=== PATIENT | female | born 1985 | race Caucasian/White ===

== ENCOUNTER 2016-04-10 17:32 | Emergency (ER) | payer OTHER ==
[2016-04-10] MEDS ORDERED: ONDANSETRON 4MG/2ML VIAL (J2405) As Ordered ONE (18:30)
[2016-04-10] MEDS ORDERED: KETOROLAC 30 MG/ML VIAL (J1885) As Ordered ONE (18:30)
[2016-04-10 19:04] LABS: BASO # 0.2 K/mm3 (0.0-0.2); BASO % 1.5 % (0.0-1.0); EOS # 0.4 K/mm3 (0.0-0.50); EOS % 3.6 % (0.0-3.0); LARGE UNSTAINED CELL # 0.2 K/mm3 (0.0-0.4); LYMPH # 2.4 K/mm3 (1.5-4.5); MEAN CORPUSCULAR HEMOGLOBIN 30.5 pg (27.0-33.0); MEAN CORPUSCULAR HGB CONC 34.3 g/dl (32.0-36.5); MEAN CORPUSCULAR VOLUME 88.9 fl (80.0-96.0); MONO # 0.5 K/mm3 (0.0-0.8); MONO % 5.2 % (0.0-5.0); NEUTROPHILS # 6.9 K/mm3 (1.8-7.7); NEUTROPHILS % 66.8 % (36.0-66.0); PLATELET COUNT, AUTOMATED 256 k/mm3 (150-450); RED CELL DISTRIBUTION WIDTH 13.6 % (11.5-14.5); WHITE BLOOD COUNT 10.4 K/mm3 (4.0-10.0)
[2016-04-10 19:16] LABS: ALBUMIN 4.4 GM/DL (3.2-5.2); ALBUMIN/GLOBULIN RATIO 1.16 (1.00-1.93); ALKALINE PHOSPHATASE 56 U/L (45-117); ALT/SGPT 26 U/L (12-78); AMYLASE 58 U/L (25-115); ANION GAP 10 MEQ/L (8-16); AST/SGOT 17 U/L (15-37); BILIRUBIN,DIRECT 0.1 MG/DL (0.0-0.2); BILIRUBIN,TOTAL 0.3 MG/DL (0.2-1.0); BLOOD UREA NITROGEN 15 MG/DL (7-18); CALCIUM LEVEL 9.2 MG/DL (8.5-10.1); CARBON DIOXIDE LEVEL 26 MEQ/L (21-32); CHLORIDE LEVEL 105 MEQ/L (98-107); CREATININE FOR GFR 0.83 MG/DL (0.55-1.02); GLOMERULAR FILTRATION RATE > 60.0 (>60); GLUCOSE, FASTING 86 MG/DL (70-105); POTASSIUM SERUM 3.9 MEQ/L (3.5-5.1); SODIUM LEVEL 141 MEQ/L (136-145); TOTAL PROTEIN 8.2 GM/DL (6.4-8.2)
--- NOTE | 2016-04-10 20:10 | REPUSA ---
CLINICAL HISTORY: Abdominal pain. TECHNIQUE: Multiple axial, sagittal and coronal CT images were obtained through the abdomen and pelvi s without administration of oral or IV contrast material. COMMENTS: The liver is of uniform attenuation without mass or defect. There is no intra or extrahepatic biliary ductal dilatation. The spleen is normal. The gallbladder is within normal limits. The pancreas is of normal contour and attenuation characteristics. There is no evidence of adrenal mass. The kidneys are normal in size, shape and configuration. No right renal or ureteral calculi are ident ified. 2 mm nonobstructing calculus is noted in the lower pole of the left kidney. There is no hydr oureter or hydronephrosis. Small hiatal hernia is seen. There is no evidence for appendicitis. There is no bowel wall thickening. No evidence for small or la rge bowel obstruction. There is no evidence of abdominal ascites or lymphadenopathy. There is no evidence of intrinsic or extrinsic bladder mass. There is no pelvic ascites or lymphadeno mylene. The uterus and ovaries are unremarkable. Images of the lung bases show no evidence of pleural or parenchymal mass. There are no pleural effusi ons. The bony structures are free of lytic or blastic lesions. IMPRESSION: No acute abdominal pelvic pathology. 2 mm nonobstructing calculus is noted in the lower pole of the left kidney. Small hiatal hernia. Thank you for your kind referral of this patient.
--- NOTE | 2016-04-10 20:58 | EDDOCDS ---
Nurse's Notes [facility] Name: Tala Solorio Age: 31 yrs Sex: Female : 1985 Arrival Date: 04/10/2016 Time: 17:32 Bed I5 / M5 Private MD: SOURAV Escobar Diagnosis: Lower abdominal pain, unspecified-LEFT LOWER Presentation: 04/10 17:36 Presenting complaint: Patient states: LUQ pain, nausea started an hour ago. No relief rs3 with Tums. abdominal pain on and off for a month. Risk factors: the patient reports no vaginal bleeding. Adult Sepsis Screening: The patient does not have new or worsening altered mentation. Patient's respiratory rate is less than 22. Systolic blood pressure is greater than 100. Patient has a qSOFA score of 0- Negative Sepsis Screen. Suicide/Homicide risk assessment- the patient denies having any suicidal and/or homicidal ideations and does not present with any other emotional, behavioral or mental health complaints. Status: The patient is a dependent. Transition of care: patient was not received from another setting of care. 17:36 Acuity: LANDY Level 3 rs3 17:36 Method Of Arrival: Walkin/Carried/Asstd rs3 Triage Assessment: 17:39 General: Appears in no apparent distress. Pain: Location: left upper quadrant. HIV rs3 screening NA for this visit Offered previously. GI: Reports upper abd pain. 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 Adderall XR 20 mg Oral cp24 1 cap once daily 2. FiberCon 625 mg Oral tab daily - PMHx: none; - PSHx: Appendectomy; R wrist repair; - Social history: Smoking status: Patient states was never smoker of tobacco. No barriers to communication noted, The patient speaks fluent French. - Family history: Not pertinent. - : The pt / caregiver states he / she is not on anticoagulants. Home medication list is obtained from the patient. - Exposure Risk Screening:: None identified. Screenin:46 Screening information is obtained from the patient. Fall risk: No risks identified. dls Assistance ADL's: requires no assistance with activities of daily living. Abuse/DV Screen: The patient / caregiver reports he/she is: not in a situation that causes fear, pain or injury. Nutritional screening: No deficits noted. Advance Directives: Currently, there is no health care proxy. There is no active DNR order. There is no living will. There is no Power of Measurement Superintendent. home support is adequate. Assessment: 18:47 General: Appears uncomfortable, well developed, well nourished, well groomed, Behavior dls is cooperative. Neurological: No deficits noted. EENT: No deficits noted. Cardiovascular: No deficits noted. Respiratory: No deficits noted. Respiratory: Reports. GI: Abdomen is non- distended Bowel sounds present X 4 quads. Abd is tender to palpation X 4 quads. : No deficits noted. Derm: No deficits noted. Musculoskeletal: No deficits noted. 19:20 General: Appears in no apparent distress, comfortable, Behavior is appropriate for age, jmb cooperative. Neurological: Level of Consciousness is awake, alert, obeys commands, Oriented to person, place, time. Respiratory: Airway is patent Respiratory effort is even, unlabored, Respiratory pattern is regular, symmetrical. 20:07 General: Appears in no apparent distress, comfortable, Behavior is appropriate for age, jmb cooperative, Patient laying on stretcher, texting on cell phone. NO voiced complaints at this time. . Neurological: Level of Consciousness is awake, alert, obeys commands, Oriented to person, place, time, Speech is normal, Facial symmetry appears normal, Facial symmetry: tongue is midline. Respiratory: Airway is patent Respiratory effort is even, unlabored, Respiratory pattern is regular, symmetrical. Vital Signs: 17:35 BP 154 / 83; Pulse 100; Resp 16; Temp 98.3(O); Pulse Ox 100% on R/A; Weight 99.79 kg elp (R); Height 5 ft. 7 in. (170.18 cm) (R); Pain 6/10; 20:50 BP 135 / 74; Pulse 104; Resp 18; Temp 96.7(O); Pulse Ox 99% on R/A; Pain 2/10; edil 17:35 Body Mass Index 34.46 (99.79 kg, 170.18 cm) [facility] Vitals: 17:35 Log In Time: April 10, 2016 at 17:33. [facility] ED Course: 17:34 Patient visited by Urvashi Laura PCA. elp 17:34 Shawn [facility] is Private Physician. elp 17:34 Patient moved to Waiting elp 17:34 Patient moved to Pre RCE elp 17:35 Patient visited by Urvashi Laura PCA. elp 17:38 Triage Initiated rs3 17:40 Patient moved to Triage 2 rs3 18:07 [facility] ck[facility] 18:07 Chayo Gallo MD is Attending Physician. ck7 18:07 Patient visited by Abdi Van RPA-C. ck7 18:15 [facility] Payment Agreement was scanned into [facility] and attached to record. ks16 18:29 Patient moved to I5 / M5 dls 18:30 Urinalysis Sent. ar3 18:30 Urine Culture Sent. ar3 18:38 Patient visited by Abdi Van RPA-C. ck7 18:44 Inserted saline lock: 20 gauge in left antecubital area and blood collected. The dls patient tolerated the procedure well. 18:46 The patient / caregiver is instructed regarding the plan of care and ED course. dls 18:46 Amylase Sent. dls 18:46 Basic Metabolic Profile Sent. dls 18:46 CBC with Diff Sent. dls 18:46 Lipase Sent. dls 18:46 Liver Profile Sent. dls 18:46 No procedures done that require assistance. dls 19:12 Patient visited by Abdi Van RPA-C. ck7 19:44 Patient visited by Abdi Van RPA-C. ck7 20:08 Patient visited by Justino Kramer RN. jmb 20:35 CT ABD & PELVIS: No Contrast Returned. EDMS 20:43 Patient visited by Abdi Van RPA-C. ck7 20:50 Patient visited by Kiera Aguila PCA. edil Administered Medications: 18:45 Drug: ketorolac 30 mg [ketorolac 30 mg/mL (1 mL) injection solution (1 mL)] Route: IVP; dls Site: left antecubital; 18:45 Drug: Ondansetron 4 mg [ondansetron HCl 2 mg/mL intravenous solution (2 mL)] Route: dls IVP; Site: left antecubital; 18:45 Drug: NS 0.9% 1000 ml [sodium chloride 0.9 % intravenous solution] Route: IV; Rate: dls bolus; Site: left antecubital; 20:55 Follow up: IV Status: Completed infusion cz Point of Care Testing: Urine : 18:33 hCG Reading: Negative; Control Reading: Positive; ms18 Ranges: Order Results: Lab Order: Amylase; SPEC'M 04/10/16 18:43 Test: AMYLASE; Value: 58; Range: 25-115; Units: U/L; Status: F Lab Order: Basic Metabolic Profile; SPEC'M 04/10/16 18:43 Test: GLUCOSE, FASTING; Value: 86; Range: 70-105; Units: MG/DL; Status: F Test: BLOOD UREA NITROGEN; Value: 15; Range: 7-18; Units: MG/DL; Status: F Test: CREATININE FOR GFR; Value: 0.83; Range: 0.55-1.02; Units: MG/DL; Status: F Test: GLOMERULAR FILTRATION RATE; Value: > 60.0; Range: >60; Status: F Test: SODIUM LEVEL; Value: 141; Range: 136-145; Units: MEQ/L; Status: F Test: POTASSIUM SERUM; Value: 3.9; Range: 3.5-5.1; Units: MEQ/L; Status: F Test: CHLORIDE LEVEL; Value: 105; Range: 98-107; Units: MEQ/L; Status: F Test: CARBON DIOXIDE LEVEL; Value: 26; Range: 21-32; Units: MEQ/L; Status: F Test: ANION GAP; Value: 10; Range: 8-16; Units: MEQ/L; Status: F Test: CALCIUM LEVEL; Value: 9.2; Range: 8.5-10.1; Units: MG/DL; Status: F Test Note: ; Units are mL/min/1.73 m2 Chronic Kidney Disease Staging per NKF: Stage I & II GFR >=60 Normal to Mildly Decreased Stage III GFR 30-59 Moderately Decreased Stage IV GFR 15-29 Severely Decreased Stage V GFR <15 Very Little GFR Left ESRD GFR <15 on CHIEF COOK Lab Order: CBC with Diff; SPEC'M 04/10/16 18:43 Test: WHITE BLOOD COUNT; Value: 10.4; Range: 4.0-10.0; Abnormal: Above high normal; Units: K/mm3; Status: F Test: RED BLOOD COUNT; Value: 4.53; Range: 4.00-5.40; Units: M/mm3; Status: F Test: HEMOGLOBIN; Value: 13.8; Range: 12.0-16.0; Units: g/dl; Status: F Test: HEMATOCRIT; Value: 40.3; Range: 36.0-47.0; Units: %; Status: F Test: MEAN CORPUSCULAR VOLUME; Value: 88.9; Range: 80.0-96.0; Units: fl; Status: F Test: MEAN CORPUSCULAR HEMOGLOBIN; Value: 30.5; Range: 27.0-33.0; Units: pg; Status: F Test: MEAN CORPUSCULAR HGB CONC; Value: 34.3; Range: 32.0-36.5; Units: g/dl; Status: F Test: RED CELL DISTRIBUTION WIDTH; Value: 13.6; Range: 11.5-14.5; Units: %; Status: F Test: PLATELET COUNT, AUTOMATED; Value: 256; Range: 150-450; Units: k/mm3; Status: F Test: NEUTROPHILS %; Value: 66.8; Range: 36.0-66.0; Abnormal: Above high normal; Units: %; Status: F Test: LYMPH %; Value: 21.0; Range: 24.0-44.0; Abnormal: Below low normal; Units: %; Status: F Test: MONO %; Value: 5.2; Range: 0.0-5.0; Abnormal: Above high normal; Units: %; Status: F Test: EOS %; Value: 3.6; Range: 0.0-3.0; Abnormal: Above high normal; Units: %; Status: F Test: BASO %; Value: 1.5; Range: 0.0-1.0; Abnormal: Above high normal; Units: %; Status: F Test: LARGE UNSTAINED CELL %; Value: 2.0; Range: 0.0-4.0; Units: %; Status: F Test: NEUTROPHILS #; Value: 6.9; Range: 1.8-7.7; Units: K/mm3; Status: F Test: LYMPH #; Value: 2.4; Range: 1.5-4.5; Units: K/mm3; Status: F Test: MONO #; Value: 0.5; Range: 0.0-0.8; Units: K/mm3; Status: F Test: EOS #; Value: 0.4; Range: 0.0-0.50; Units: K/mm3; Status: F Test: BASO #; Value: 0.2; Range: 0.0-0.2; Units: K/mm3; Status: F Test: LARGE UNSTAINED CELL #; Value: 0.2; Range: 0.0-0.4; Units: K/mm3; Status: F Lab Order: Lipase; [facility] 04/10/16 18:43 Test: LIPASE; Value: 113; Range: 73-393; Units: U/L; Status: F Lab Order: Liver Profile; [facility]' 04/10/16 18:43 Test: AST/SGOT; Value: 17; Range: 15-37; Units: U/L; Status: F Test: ALT/SGPT; Value: 26; Range: 12-78; Units: U/L; Status: F Test: ALKALINE PHOSPHATASE; Value: 56; Range: 45-117; Units: U/L; Status: F Test: BILIRUBIN,TOTAL; Value: 0.3; Range: 0.2-1.0; Units: MG/DL; Status: F Test: BILIRUBIN,DIRECT; Value: 0.1; Range: 0.0-0.2; Units: MG/DL; Status: F Test: TOTAL PROTEIN; Value: 8.2; Range: 6.4-8.2; Units: GM/DL; Status: F Test: ALBUMIN; Value: 4.4; Range: 3.2-5.2; Units: GM/DL; Status: F Test: ALBUMIN/GLOBULIN RATIO; Value: 1.16; Range: 1.00-1.93; Status: F Lab Order: Urinalysis; [facility]' 04/10/16 18:28 Test: APPEARANCE, URINE; Value: HAZY; Range: CLEAR; Status: F Test: COLOR, URINE; Value: YELLOW; Range: YELLOW; Status: F Test: PH,URINE; Value: 6.0; Range: 5.0-9.0; Units: UNITS; Status: F Test: SPECIFIC GRAVITY URINE AUTO; Value: 1.018; Range: 1.002-1.035; Status: F Test: PROTEIN, URINE AUTO; Value: NEGATIVE; Range: NEGATIVE; Units: mg/dL; Status: F Test: GLUCOSE, URINE (UA) AUTO; Value: NEGATIVE; Range: NEGATIVE; Units: mg/dL; Status: F Test: KETONE, URINE AUTO; Value: NEGATIVE; Range: NEGATIVE; Units: mg/dL; Status: F Test: UROBILINOGEN, URINE AUTO; Value: 0.2; Range: 0.0-2.0; Units: mg/dL; Status: F Test: BILIRUBIN, URINE AUTO; Value: NEGATIVE; Range: NEGATIVE; Status: F Test: NITRITE, URINE AUTO; Value: NEGATIVE; Range: NEGATIVE; Status: F Test: LEUKOCYTE ESTERASE, URINE AUTO; Value: NEGATIVE; Range: NEGATIVE; Status: F Test: BLOOD, URINE BLOOD; Value: NEGATIVE; Range: NEGATIVE; Status: F Test: WBC, URINE AUTO; Value: 1; Range: 0-3; Units: /HPF; Status: F Test: RBC, URINE AUTO; Value: 2; Range: 0-3; Units: /HPF; Status: F Test: BACTERIA, URINE AUTO; Value: NEGATIVE; Range: NEGATIVE; Status: F Test: SQUAMOUS EPITHELIAL CELL UR AU; Value: 0; Range: 0-6; Units: /HPF; Status: F Test: MUCUS, URINE; Value: SMALL; Range: NEGATIVE; Status: F Test: HYALINE CAST, URINE AUTO; Value: 0; Range: 0-1; Units: /LPF; Status: F Test: AMORPHOUS SEDIMENT; Value: SMALL; Range: NEGATIVE; Abnormal: Above high normal; Status: F Radiology Order: CT ABD & PELVIS: No Contrast Test: CT ABD & PELVIS: No Contrast REASON FOR EXAMINATION: Diverticulitis; ; CLINICAL HISTORY: Abdominal pain.; TECHNIQUE: Multiple axial, sagittal and coronal CT images were obtained through the abdomen and pelvi; s without administration of oral or IV contrast material.; COMMENTS:; The liver is of uniform attenuation without mass or defect. There is no intra or extrahepatic biliary; ductal dilatation. The spleen is normal. The gallbladder is within normal limits. The pancreas is of; normal contour and attenuation characteristics. There is no evidence of adrenal mass.; The kidneys are normal in size, shape and configuration. No right renal or ureteral calculi are ident; ified. 2 mm nonobstructing calculus is noted in the lower pole of the left kidney. There is no hydr; oureter or hydronephrosis.; Small hiatal hernia is seen.; There is no evidence for appendicitis. There is no bowel wall thickening. No evidence for small or la; rge bowel obstruction. There is no evidence of abdominal ascites or lymphadenopathy.; There is no evidence of intrinsic or extrinsic bladder mass. There is no pelvic ascites or lymphadeno; mylene.; The uterus and ovaries are unremarkable.; Images of the lung bases show no evidence of pleural or parenchymal mass. There are no pleural effusi; ons.; The bony structures are free of lytic or blastic lesions.; IMPRESSION:; No acute abdominal pelvic pathology.; 2 mm nonobstructing calculus is noted in the lower pole of the left kidney.; Small hiatal hernia.; Thank you for your kind referral of this patient.; ; Outcome: 20:50 Discharge ordered by Provider. ck7 20:56 Discharge Assessment: Patient awake, alert and oriented x 3. No cognitive and/or cz functional deficits noted. Patient verbalized understanding of disposition instructions. patient administered narcotics - no. The following High Risk Discharge criteria are identified: None. Discharged to home ambulatory, with significant other. Condition: stable. Discharge instructions given to patient, Instructed on discharge instructions, follow up and referral plans. medication usage, Demonstrated understanding of instructions, medications, Pt was receptive of discharge instructions/ teaching. Prescriptions given X 2. CT Study completed. Property :Personal belongings accompany Pt. 20:56 Patient left the ED. cz Signatures: Dispatcher [employer] EDMS Michelle Desai, RN RN Leandro Berry RN RN cz Soosairaj, Rosemary, RN RN rs3 Isatu Bahena, DIRECTOR INVESTOR RELATIONS DIRECTOR INVESTOR RELATIONS ar3 Kiera Aguila, DIRECTOR INVESTOR RELATIONS DIRECTOR INVESTOR RELATIONS Abdi Vasquez, MICHELE-C RPA-Cck7 Urvashi Laura, DIRECTOR INVESTOR RELATIONS DIRECTOR INVESTOR RELATIONS Justino Ennis RN RN jmb Smith, Mallory, RN RN ms18 Keira Ralph, Reg Reg [email or web address] MTDD
--- NOTE | 2016-04-10 20:58 | EDDOCDS ---
Physician Documentation [facility] Name: Tala Solorio Age: 31 yrs Sex: Female : 1985 Arrival Date: 04/10/2016 Time: 17:32 Bed I5 / M5 Private MD: Shawn [facility] Disposition: 04/10/16 20:50 Discharged to Home/Self Care. Impression: Lower abdominal pain, unspecified - LEFT LOWER. - Condition is Stable. - Discharge Instructions: Abdominal Pain, Adult. - Prescriptions for Ibuprofen 600 mg Oral Tablet - take 1 tablet by ORAL route every 6 hours As needed take with food; 30 tablet. ZOFRAN ODT 4 mg - dissolve 1 tablet by ORAL route 4 times per day As needed do not chew, do not swallow whole; 10 tablet. - Medication Reconciliation, Local Pharmacy Hours form. - Follow up: Private Physician; When: 2 - 3 days; Reason: Recheck today's complaints, Continuance of care. - Problem is new. - Symptoms have improved. - Notes: USE MEDICATION INSTRUCTED, FOLLOW UP WITH YOUR DOCTOR, RETURN TO THE ER IF THE SYMPTOMS WORSEN OR BECOME CONCERNING Historical: - Allergies: IV Dye (Rash); - Home Meds: 1. Adderall XR 20 mg Oral cp24 1 cap once daily 2. FiberCon 625 mg Oral tab daily - PMHx: none; - PSHx: Appendectomy; R wrist repair; - Social history: Smoking status: Patient states was never smoker of tobacco. No barriers to communication noted, The patient speaks fluent Vietnamese. - Family history: Not pertinent. - : The pt / caregiver states he / she is not on anticoagulants. Home medication list is obtained from the patient. - Exposure Risk Screening:: None identified. 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 7 in. (170.18 cm) (R); Pain 6/10; 20:50 BP 135 / 74; Pulse 104; Resp 18; Temp 96.7(O); Pulse Ox 99% on R/A; Pain 2/10; edil 17:35 Body Mass Index 34.46 (99.79 kg, 170.18 cm) elp MDM: 18:15 Financial registration complete. ks16 18:15 [facility] Payment Agreement was scanned into [employer] and attached to record. ks16 18:25 Undress patient appropriately for examination ordered. ck7 18:25 IV Saline Lock ordered. ck7 18:25 ketorolac 30 mg IVP once ordered. ck7 18:25 Ondansetron 4 mg IVP once ordered. ck7 18:25 NS 0.9% 1000 ml IV at bolus once ordered. ck7 18:25 UCG by Nursing ordered. ck7 18:25 Amylase Ordered. EDMS 18:25 Basic Metabolic Profile Ordered. EDMS 18:25 CBC with Diff Ordered. EDMS 18:25 Lipase Ordered. EDMS 18:25 Liver Profile Ordered. EDMS 18:25 Urinalysis Ordered. EDMS 18:25 Urine Culture Ordered. EDMS 18:27 NOTHING BY MOUTH+DIET ordered. EDMS 19:07 Urinalysis Reviewed. ck7 19:09 CT ABD & PELVIS: No Contrast Ordered. EDMS 19:22 CBC with Diff Reviewed. ck7 19:22 Amylase Reviewed. ck7 19:22 Basic Metabolic Profile Reviewed. ck7 19:22 Lipase Reviewed. ck7 19:22 Liver Profile Reviewed. ck7 20:44 CT ABD & PELVIS: No Contrast Reviewed. ck7 Point of Care Testing: Urine : 18:33 hCG Reading: Negative; Control Reading: Positive; ms18 Ranges: Administered Medications: 18:45 Drug: ketorolac 30 mg [ketorolac 30 mg/mL (1 mL) injection solution (1 mL)] Route: IVP; dls Site: left antecubital; 18:45 Drug: Ondansetron 4 mg [ondansetron HCl 2 mg/mL intravenous solution (2 mL)] Route: dls IVP; Site: left antecubital; 18:45 Drug: NS 0.9% 1000 ml [sodium chloride 0.9 % intravenous solution] Route: IV; Rate: dls bolus; Site: left antecubital; 20:55 Follow up: IV Status: Completed infusion cz Signatures: Dispatcher [employer] EDMS Michelle Desai RN RN dls Zecher, Calvin, RN RN cz Soosairaj, Rosemary, RN RN rs3 Abdi Van, RPA-C RPA-Cck7 Keira Ralph, Reg Reg ks16 The chart was reviewed and I authenticate all verbal orders and agree with the evaluation and treatment provided.Attachments: 18:15 [facility] Payment Agreement [email or web address] MTDD
--- NOTE | 2016-04-12 21:57 | EDDOCDS ---
Physician Documentation [facility] Name: Tala Solorio Age: 31 yrs Sex: Female : 1985 Arrival Date: 04/10/2016 Time: 17:32 Bed I5 / M5 Private MD: Shawn [facility] Disposition: 04/10/16 20:50 Discharged to Home/Self Care. Impression: Lower abdominal pain, unspecified - LEFT LOWER. - Condition is Stable. - Discharge Instructions: Abdominal Pain, Adult. - Prescriptions for Ibuprofen 600 mg Oral Tablet - take 1 tablet by ORAL route every 6 hours As needed take with food; 30 tablet. ZOFRAN ODT 4 mg - dissolve 1 tablet by ORAL route 4 times per day As needed do not chew, do not swallow whole; 10 tablet. - Medication Reconciliation, Local Pharmacy Hours form. - Follow up: Private Physician; When: 2 - 3 days; Reason: Recheck today's complaints, Continuance of care. - Problem is new. - Symptoms have improved. - Notes: USE MEDICATION INSTRUCTED, FOLLOW UP WITH YOUR DOCTOR, RETURN TO THE ER IF THE SYMPTOMS WORSEN OR BECOME CONCERNING Historical: - Allergies: IV Dye (Rash); - Home Meds: 1. Adderall XR 20 mg Oral cp24 1 cap once daily 2. FiberCon 625 mg Oral tab daily - PMHx: none; - PSHx: Appendectomy; R wrist repair; - Social history: Smoking status: Patient states was never smoker of tobacco. No barriers to communication noted, The patient speaks fluent Mongolian. - Family history: Not pertinent. - : The pt / caregiver states he / she is not on anticoagulants. Home medication list is obtained from the patient. - Exposure Risk Screening:: None identified. 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 7 in. (170.18 cm) (R); Pain 6/10; 20:50 BP 135 / 74; Pulse 104; Resp 18; Temp 96.7(O); Pulse Ox 99% on R/A; Pain 2/10; edil 17:35 Body Mass Index 34.46 (99.79 kg, 170.18 cm) elp MDM: 18:15 Financial registration complete. ks16 18:15 [facility] Payment Agreement was scanned into [employer] and attached to record. ks16 18:25 Undress patient appropriately for examination ordered. ck7 18:25 IV Saline Lock ordered. ck7 18:25 ketorolac 30 mg IVP once ordered. ck7 18:25 Ondansetron 4 mg IVP once ordered. ck7 18:25 NS 0.9% 1000 ml IV at bolus once ordered. ck7 18:25 UCG by Nursing ordered. ck7 18:25 Amylase Ordered. EDMS 18:25 Basic Metabolic Profile Ordered. EDMS 18:25 CBC with Diff Ordered. EDMS 18:25 Lipase Ordered. EDMS 18:25 Liver Profile Ordered. EDMS 18:25 Urinalysis Ordered. EDMS 18:25 Urine Culture Ordered. EDMS 18:27 NOTHING BY MOUTH+DIET ordered. EDMS 19:07 Urinalysis Reviewed. ck7 19:09 CT ABD & PELVIS: No Contrast Ordered. EDMS 19:22 CBC with Diff Reviewed. ck7 19:22 Amylase Reviewed. ck7 19:22 Basic Metabolic Profile Reviewed. ck7 19:22 Lipase Reviewed. ck7 19:22 Liver Profile Reviewed. ck7 20:44 CT ABD & PELVIS: No Contrast Reviewed. ck7 04/11 11:19 T-Sheet-- Draft Copy was scanned into [employer] and attached to record. gb Point of Care Testing: Urine : 04/10 18:33 hCG Reading: Negative; Control Reading: Positive; ms18 Ranges: Administered Medications: 18:45 Drug: ketorolac 30 mg [ketorolac 30 mg/mL (1 mL) injection solution (1 mL)] Route: IVP; dls Site: left antecubital; 18:45 Drug: Ondansetron 4 mg [ondansetron HCl 2 mg/mL intravenous solution (2 mL)] Route: dls IVP; Site: left antecubital; 18:45 Drug: NS 0.9% 1000 ml [sodium chloride 0.9 % intravenous solution] Route: IV; Rate: dls bolus; Site: left antecubital; 20:55 Follow up: IV Status: Completed infusion cz Signatures: Dispatcher [employer] EDMS Lloyd, MATIAS Martinez RN, Calvin, RN RN cz Josfeina Moreau, Reg Reg gb Theresa Barker RN RN rs3 Abdi Van, RPA-C RPA-Cck7 Keira Ralph, Reg Reg ks16 The chart was reviewed and I authenticate all verbal orders and agree with the evaluation and treatment provided.Attachments: 18:15 [facility] Payment Agreement [email or web address] 04/11 11:19 T-Sheet-- Draft Copy gb Chart Complete MTDD
--- NOTE | 2016-04-12 21:57 | EDDOCDS ---
Physician Documentation [facility] Name: Tala Solorio Age: 31 yrs Sex: Female : 1985 Arrival Date: 04/10/2016 Time: 17:32 Bed I5 / M5 Private MD: Shawn [facility] [place] Disposition: 04/10/16 20:50 Discharged to Home/Self Care. Impression: Lower abdominal pain, unspecified - LEFT LOWER. - Condition is Stable. - Discharge Instructions: Abdominal Pain, Adult. - Prescriptions for Ibuprofen 600 mg Oral Tablet - take 1 tablet by ORAL route every 6 hours As needed take with food; 30 tablet. ZOFRAN ODT 4 mg - dissolve 1 tablet by ORAL route 4 times per day As needed do not chew, do not swallow whole; 10 tablet. - Medication Reconciliation, Local Pharmacy Hours form. - Follow up: Private Physician; When: 2 - 3 days; Reason: Recheck today's complaints, Continuance of care. - Problem is new. - Symptoms have improved. - Notes: USE MEDICATION INSTRUCTED, FOLLOW UP WITH YOUR DOCTOR, RETURN TO THE ER IF THE SYMPTOMS WORSEN OR BECOME CONCERNING Historical: - Allergies: IV Dye (Rash); - Home Meds: 1. Adderall XR 20 mg Oral cp24 1 cap once daily 2. FiberCon 625 mg Oral tab daily - PMHx: none; - PSHx: Appendectomy; R wrist repair; - Social history: Smoking status: Patient states was never smoker of tobacco. No barriers to communication noted, The patient speaks fluent Divehi. - Family history: Not pertinent. - : The pt / caregiver states he / she is not on anticoagulants. Home medication list is obtained from the patient. - Exposure Risk Screening:: None identified. 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 7 in. (170.18 cm) (R); Pain 6/10; 20:50 BP 135 / 74; Pulse 104; Resp 18; Temp 96.7(O); Pulse Ox 99% on R/A; Pain 2/10; edil 17:35 Body Mass Index 34.46 (99.79 kg, 170.18 cm) elp MDM: 18:15 Financial registration complete. ks16 18:15 [facility] Payment Agreement was scanned into [employer] and attached to record. ks16 18:25 Undress patient appropriately for examination ordered. ck7 18:25 IV Saline Lock ordered. ck7 18:25 ketorolac 30 mg IVP once ordered. ck7 18:25 Ondansetron 4 mg IVP once ordered. ck7 18:25 NS 0.9% 1000 ml IV at bolus once ordered. ck7 18:25 UCG by Nursing ordered. ck7 18:25 Amylase Ordered. EDMS 18:25 Basic Metabolic Profile Ordered. EDMS 18:25 CBC with Diff Ordered. EDMS 18:25 Lipase Ordered. EDMS 18:25 Liver Profile Ordered. EDMS 18:25 Urinalysis Ordered. EDMS 18:25 Urine Culture Ordered. EDMS 18:27 NOTHING BY MOUTH+DIET ordered. EDMS 19:07 Urinalysis Reviewed. ck7 19:09 CT ABD & PELVIS: No Contrast Ordered. EDMS 19:22 CBC with Diff Reviewed. ck7 19:22 Amylase Reviewed. ck7 19:22 Basic Metabolic Profile Reviewed. ck7 19:22 Lipase Reviewed. ck7 19:22 Liver Profile Reviewed. ck7 20:44 CT ABD & PELVIS: No Contrast Reviewed. ck7 04/11 11:19 T-Sheet-- Draft Copy was scanned into [employer] and attached to record. gb Point of Care Testing: Urine : 04/10 18:33 hCG Reading: Negative; Control Reading: Positive; ms18 Ranges: Administered Medications: 18:45 Drug: ketorolac 30 mg [ketorolac 30 mg/mL (1 mL) injection solution (1 mL)] Route: IVP; dls Site: left antecubital; 18:45 Drug: Ondansetron 4 mg [ondansetron HCl 2 mg/mL intravenous solution (2 mL)] Route: dls IVP; Site: left antecubital; 18:45 Drug: NS 0.9% 1000 ml [sodium chloride 0.9 % intravenous solution] Route: IV; Rate: dls bolus; Site: left antecubital; 20:55 Follow up: IV Status: Completed infusion cz Signatures: Dispatcher Med[employer] EDMS Lloyd, MATIAS Martinez RN, Calvin, RN RN cz Josefina Moreau, Reg Reg gb Theresa Barker RN RN rs3 Abdi Van, RPA-C RPA-Cck7 Keira Ralph, Reg Reg ks16 The chart was reviewed and I authenticate all verbal orders and agree with the evaluation and treatment provided.Attachments: 18:15 [facility] Payment Agreement [email or web address] 04/11 11:19 T-Sheet-- Draft Copy gb Chart Complete MTDD
--- NOTE | 2016-04-12 21:57 | EDDOCDS ---
Nurse's Notes [facility] Name: Tala Solorio Age: 31 yrs Sex: Female : 1985 Arrival Date: 04/10/2016 Time: 17:32 Bed I5 / M5 Private MD: SOURAV Escobar Diagnosis: Lower abdominal pain, unspecified-LEFT LOWER Presentation: 04/10 17:36 Presenting complaint: Patient states: LUQ pain, nausea started an hour ago. No relief rs3 with Tums. abdominal pain on and off for a month. Risk factors: the patient reports no vaginal bleeding. Adult Sepsis Screening: The patient does not have new or worsening altered mentation. Patient's respiratory rate is less than 22. Systolic blood pressure is greater than 100. Patient has a qSOFA score of 0- Negative Sepsis Screen. Suicide/Homicide risk assessment- the patient denies having any suicidal and/or homicidal ideations and does not present with any other emotional, behavioral or mental health complaints. Status: The patient is a dependent. Transition of care: patient was not received from another setting of care. 17:36 Acuity: LANDY Level 3 rs3 17:36 Method Of Arrival: Walkin/Carried/Asstd rs3 Triage Assessment: 17:39 General: Appears in no apparent distress. Pain: Location: left upper quadrant. HIV rs3 screening NA for this visit Offered previously. GI: Reports upper abd pain. 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 Adderall XR 20 mg Oral cp24 1 cap once daily 2. FiberCon 625 mg Oral tab daily - PMHx: none; - PSHx: Appendectomy; R wrist repair; - Social history: Smoking status: Patient states was never smoker of tobacco. No barriers to communication noted, The patient speaks fluent Belarusian. - Family history: Not pertinent. - : The pt / caregiver states he / she is not on anticoagulants. Home medication list is obtained from the patient. - Exposure Risk Screening:: None identified. Screenin:46 Screening information is obtained from the patient. Fall risk: No risks identified. dls Assistance ADL's: requires no assistance with activities of daily living. Abuse/DV Screen: The patient / caregiver reports he/she is: not in a situation that causes fear, pain or injury. Nutritional screening: No deficits noted. Advance Directives: Currently, there is no health care proxy. There is no active DNR order. There is no living will. There is no Power of Chlorinator. home support is adequate. Assessment: 18:47 General: Appears uncomfortable, well developed, well nourished, well groomed, Behavior dls is cooperative. Neurological: No deficits noted. EENT: No deficits noted. Cardiovascular: No deficits noted. Respiratory: No deficits noted. Respiratory: Reports. GI: Abdomen is non- distended Bowel sounds present X 4 quads. Abd is tender to palpation X 4 quads. : No deficits noted. Derm: No deficits noted. Musculoskeletal: No deficits noted. 19:20 General: Appears in no apparent distress, comfortable, Behavior is appropriate for age, jmb cooperative. Neurological: Level of Consciousness is awake, alert, obeys commands, Oriented to person, place, time. Respiratory: Airway is patent Respiratory effort is even, unlabored, Respiratory pattern is regular, symmetrical. 20:07 General: Appears in no apparent distress, comfortable, Behavior is appropriate for age, jmb cooperative, Patient laying on stretcher, texting on cell phone. NO voiced complaints at this time. . Neurological: Level of Consciousness is awake, alert, obeys commands, Oriented to person, place, time, Speech is normal, Facial symmetry appears normal, Facial symmetry: tongue is midline. Respiratory: Airway is patent Respiratory effort is even, unlabored, Respiratory pattern is regular, symmetrical. Vital Signs: 17:35 BP 154 / 83; Pulse 100; Resp 16; Temp 98.3(O); Pulse Ox 100% on R/A; Weight 99.79 kg elp (R); Height 5 ft. 7 in. (170.18 cm) (R); Pain 6/10; 20:50 BP 135 / 74; Pulse 104; Resp 18; Temp 96.7(O); Pulse Ox 99% on R/A; Pain 2/10; edil 17:35 Body Mass Index 34.46 (99.79 kg, 170.18 cm) [facility] Vitals: 17:35 Log In Time: April 10, 2016 at 17:33. [facility] ED Course: 17:34 Patient visited by Urvashi Laura PCA. elp 17:34 Shawn [facility] [place] Private Physician. elp 17:34 Patient moved to Waiting elp 17:34 Patient moved to Pre RCE elp 17:35 Patient visited by Urvashi Laura PCA. elp 17:38 Triage Initiated rs3 17:40 Patient moved to Triage 2 rs3 18:07 [facility] ck7 18:07 Chayo Gallo MD is Attending Physician. ck7 18:07 Patient visited by Abdi Van RPA-C. ck7 18:15 [facility] Payment Agreement was scanned into [employer] and attached to record. ks16 18:29 Patient moved to I5 / M5 dls 18:30 Urinalysis Sent. ar3 18:30 Urine Culture Sent. ar3 18:38 Patient visited by Abdi Van RPA-C. ck7 18:44 Inserted saline lock: 20 gauge in left antecubital area and blood collected. The dls patient tolerated the procedure well. 18:46 The patient / caregiver is instructed regarding the plan of care and ED course. dls 18:46 Amylase Sent. dls 18:46 Basic Metabolic Profile Sent. dls 18:46 CBC with Diff Sent. dls 18:46 Lipase Sent. dls 18:46 Liver Profile Sent. dls 18:46 No procedures done that require assistance. dls 19:12 Patient visited by Abdi Van RPA-C. ck7 19:44 Patient visited by Abdi Van RPA-C. ck7 20:08 Patient visited by Justino Kramer RN. jmb 20:35 CT ABD & PELVIS: No Contrast Returned. EDMS 20:43 Patient visited by Abdi Van RPA-C. ck7 20:50 Patient visited by Kiera Aguila PCA. edil 04/11 11:19 T-Sheet-- Draft Copy was scanned into [employer] and attached to record. gb Administered Medications: 04/10 18:45 Drug: ketorolac 30 mg [ketorolac 30 mg/mL (1 mL) injection solution (1 mL)] Route: IVP; dls Site: left antecubital; 18:45 Drug: Ondansetron 4 mg [ondansetron HCl 2 mg/mL intravenous solution (2 mL)] Route: dls IVP; Site: left antecubital; 18:45 Drug: NS 0.9% 1000 ml [sodium chloride 0.9 % intravenous solution] Route: IV; Rate: dls bolus; Site: left antecubital; 20:55 Follow up: IV Status: Completed infusion cz Point of Care Testing: Urine : 18:33 hCG Reading: Negative; Control Reading: Positive; ms18 Ranges: Order Results: Lab Order: Amylase; SPEC'M 04/10/16 18:43 Test: AMYLASE; Value: 58; Range: 25-115; Units: U/L; Status: F Lab Order: Basic Metabolic Profile; SPEC'M 04/10/16 18:43 Test: GLUCOSE, FASTING; Value: 86; Range: 70-105; Units: MG/DL; Status: F Test: BLOOD UREA NITROGEN; Value: 15; Range: 7-18; Units: MG/DL; Status: F Test: CREATININE FOR GFR; Value: 0.83; Range: 0.55-1.02; Units: MG/DL; Status: F Test: GLOMERULAR FILTRATION RATE; Value: > 60.0; Range: >60; Status: F Test: SODIUM LEVEL; Value: 141; Range: 136-145; Units: MEQ/L; Status: F Test: POTASSIUM SERUM; Value: 3.9; Range: 3.5-5.1; Units: MEQ/L; Status: F Test: CHLORIDE LEVEL; Value: 105; Range: 98-107; Units: MEQ/L; Status: F Test: CARBON DIOXIDE LEVEL; Value: 26; Range: 21-32; Units: MEQ/L; Status: F Test: ANION GAP; Value: 10; Range: 8-16; Units: MEQ/L; Status: F Test: CALCIUM LEVEL; Value: 9.2; Range: 8.5-10.1; Units: MG/DL; Status: F Test Note: ; Units are mL/min/1.73 m2 Chronic Kidney Disease Staging per NKF: Stage I & II GFR >=60 Normal to Mildly Decreased Stage III GFR 30-59 Moderately Decreased Stage IV GFR 15-29 Severely Decreased Stage V GFR <15 Very Little GFR Left ESRD GFR <15 on NUTRITION SERVICES AIDE Lab Order: CBC with Diff; SPEC'M 04/10/16 18:43 Test: WHITE BLOOD COUNT; Value: 10.4; Range: 4.0-10.0; Abnormal: Above high normal; Units: K/mm3; Status: F Test: RED BLOOD COUNT; Value: 4.53; Range: 4.00-5.40; Units: M/mm3; Status: F Test: HEMOGLOBIN; Value: 13.8; Range: 12.0-16.0; Units: g/dl; Status: F Test: HEMATOCRIT; Value: 40.3; Range: 36.0-47.0; Units: %; Status: F Test: MEAN CORPUSCULAR VOLUME; Value: 88.9; Range: 80.0-96.0; Units: fl; Status: F Test: MEAN CORPUSCULAR HEMOGLOBIN; Value: 30.5; Range: 27.0-33.0; Units: pg; Status: F Test: MEAN CORPUSCULAR HGB CONC; Value: 34.3; Range: 32.0-36.5; Units: g/dl; Status: F Test: RED CELL DISTRIBUTION WIDTH; Value: 13.6; Range: 11.5-14.5; Units: %; Status: F Test: PLATELET COUNT, AUTOMATED; Value: 256; Range: 150-450; Units: k/mm3; Status: F Test: NEUTROPHILS %; Value: 66.8; Range: 36.0-66.0; Abnormal: Above high normal; Units: %; Status: F Test: LYMPH %; Value: 21.0; Range: 24.0-44.0; Abnormal: Below low normal; Units: %; Status: F Test: MONO %; Value: 5.2; Range: 0.0-5.0; Abnormal: Above high normal; Units: %; Status: F Test: EOS %; Value: 3.6; Range: 0.0-3.0; Abnormal: Above high normal; Units: %; Status: F Test: BASO %; Value: 1.5; Range: 0.0-1.0; Abnormal: Above high normal; Units: %; Status: F Test: LARGE UNSTAINED CELL %; Value: 2.0; Range: 0.0-4.0; Units: %; Status: F Test: NEUTROPHILS #; Value: 6.9; Range: 1.8-7.7; Units: K/mm3; Status: F Test: LYMPH #; Value: 2.4; Range: 1.5-4.5; Units: K/mm3; Status: F Test: MONO #; Value: 0.5; Range: 0.0-0.8; Units: K/mm3; Status: F Test: EOS #; Value: 0.4; Range: 0.0-0.50; Units: K/mm3; Status: F Test: BASO #; Value: 0.2; Range: 0.0-0.2; Units: K/mm3; Status: F Test: LARGE UNSTAINED CELL #; Value: 0.2; Range: 0.0-0.4; Units: K/mm3; Status: F Lab Order: Lipase; [facility] 04/10/16 18:43 Test: LIPASE; Value: 113; Range: 73-393; Units: U/L; Status: F Lab Order: Liver Profile; [facility] 04/10/16 18:43 Test: AST/SGOT; Value: 17; Range: 15-37; Units: U/L; Status: F Test: ALT/SGPT; Value: 26; Range: 12-78; Units: U/L; Status: F Test: ALKALINE PHOSPHATASE; Value: 56; Range: 45-117; Units: U/L; Status: F Test: BILIRUBIN,TOTAL; Value: 0.3; Range: 0.2-1.0; Units: MG/DL; Status: F Test: BILIRUBIN,DIRECT; Value: 0.1; Range: 0.0-0.2; Units: MG/DL; Status: F Test: TOTAL PROTEIN; Value: 8.2; Range: 6.4-8.2; Units: GM/DL; Status: F Test: ALBUMIN; Value: 4.4; Range: 3.2-5.2; Units: GM/DL; Status: F Test: ALBUMIN/GLOBULIN RATIO; Value: 1.16; Range: 1.00-1.93; Status: F Lab Order: Urinalysis; [facility] 04/10/16 18:28 Test: APPEARANCE, URINE; Value: HAZY; Range: CLEAR; Status: F Test: COLOR, URINE; Value: YELLOW; Range: YELLOW; Status: F Test: PH,URINE; Value: 6.0; Range: 5.0-9.0; Units: UNITS; Status: F Test: SPECIFIC GRAVITY URINE AUTO; Value: 1.018; Range: 1.002-1.035; Status: F Test: PROTEIN, URINE AUTO; Value: NEGATIVE; Range: NEGATIVE; Units: mg/dL; Status: F Test: GLUCOSE, URINE (UA) AUTO; Value: NEGATIVE; Range: NEGATIVE; Units: mg/dL; Status: F Test: KETONE, URINE AUTO; Value: NEGATIVE; Range: NEGATIVE; Units: mg/dL; Status: F Test: UROBILINOGEN, URINE AUTO; Value: 0.2; Range: 0.0-2.0; Units: mg/dL; Status: F Test: BILIRUBIN, URINE AUTO; Value: NEGATIVE; Range: NEGATIVE; Status: F Test: NITRITE, URINE AUTO; Value: NEGATIVE; Range: NEGATIVE; Status: F Test: LEUKOCYTE ESTERASE, URINE AUTO; Value: NEGATIVE; Range: NEGATIVE; Status: F Test: BLOOD, URINE BLOOD; Value: NEGATIVE; Range: NEGATIVE; Status: F Test: WBC, URINE AUTO; Value: 1; Range: 0-3; Units: /HPF; Status: F Test: RBC, URINE AUTO; Value: 2; Range: 0-3; Units: /HPF; Status: F Test: BACTERIA, URINE AUTO; Value: NEGATIVE; Range: NEGATIVE; Status: F Test: SQUAMOUS EPITHELIAL CELL UR AU; Value: 0; Range: 0-6; Units: /HPF; Status: F Test: MUCUS, URINE; Value: SMALL; Range: NEGATIVE; Status: F Test: HYALINE CAST, URINE AUTO; Value: 0; Range: 0-1; Units: /LPF; Status: F Test: AMORPHOUS SEDIMENT; Value: SMALL; Range: NEGATIVE; Abnormal: Above high normal; Status: F Lab Order: Urine Culture; SPEC'M 04/10/16 18:28 Test: URINE CULTURE; Value: <EXTERNAL COMMENT eCWMed> FULL REPORT IN LAB NOTES (eCW and Medent).; Status: F Test: URINE CULTURE; Value: URINE CULTURE RESULT NO GROWTH; Status: F Radiology Order: CT ABD & PELVIS: No Contrast Test: CT ABD & PELVIS: No Contrast REASON FOR EXAMINATION: Diverticulitis; ; CLINICAL HISTORY: Abdominal pain.; TECHNIQUE: Multiple axial, sagittal and coronal CT images were obtained through the abdomen and pelvi; s without administration of oral or IV contrast material.; COMMENTS:; The liver is of uniform attenuation without mass or defect. There is no intra or extrahepatic biliary; ductal dilatation. The spleen is normal. The gallbladder is within normal limits. The pancreas is of; normal contour and attenuation characteristics. There is no evidence of adrenal mass.; The kidneys are normal in size, shape and configuration. No right renal or ureteral calculi are ident; ified. 2 mm nonobstructing calculus is noted in the lower pole of the left kidney. There is no hydr; oureter or hydronephrosis.; Small hiatal hernia is seen.; There is no evidence for appendicitis. There is no bowel wall thickening. No evidence for small or la; rge bowel obstruction. There is no evidence of abdominal ascites or lymphadenopathy.; There is no evidence of intrinsic or extrinsic bladder mass. There is no pelvic ascites or lymphadeno; mylene.; The uterus and ovaries are unremarkable.; Images of the lung bases show no evidence of pleural or parenchymal mass. There are no pleural effusi; ons.; The bony structures are free of lytic or blastic lesions.; IMPRESSION:; No acute abdominal pelvic pathology.; 2 mm nonobstructing calculus is noted in the lower pole of the left kidney.; Small hiatal hernia.; Thank you for your kind referral of this patient.; ; Outcome: 20:50 Discharge ordered by Provider. ck7 20:56 Discharge Assessment: Patient awake, alert and oriented x 3. No cognitive and/or cz functional deficits noted. Patient verbalized understanding of disposition instructions. patient administered narcotics - no. The following High Risk Discharge criteria are identified: None. Discharged to home ambulatory, with significant other. Condition: stable. Discharge instructions given to patient, Instructed on discharge instructions, follow up and referral plans. medication usage, Demonstrated understanding of instructions, medications, Pt was receptive of discharge instructions/ teaching. Prescriptions given X 2. CT Study completed. Property :Personal belongings accompany Pt. 20:56 Patient left the ED. cz Signatures: Dispatcher Med[employer] EDMS Michelle Desai RN RN dls Zecher, Calvin, RN RN cz Barnhardt, Gloria, Eugene Reg Theresa Garcia RN RN rs3 Isatu Bahena, WEB DESIGN INTERN WEB DESIGN INTERN ar3 Mingo, Kiera, WEB DESIGN INTERN WEB DESIGN INTERN edil Carlota, Abdi, RPA-C [id number] Urvashi Laura, WEB DESIGN INTERN WEB DESIGN INTERN Justino Ennis,RN RN marcialb Ivanna LomaxRN RN [id number] Keira Ralph, Reg Reg ks16 Chart Complete MTDD
== END 2016-04-10 20:56 | disposition home or self-care (01) ==
LOC: M ED 17:32
DX: R10.32 Left lower quadrant pain (principal); Z79.899 Other long term (current) drug therapy; Z91.041 Radiographic dye allergy status
CPT/HCPCS: 36415; 74176; 80048; 80076; 81001; 81025; 82150; 83690; 85025; 87086; 96361; 96374; 96375; 99284; J1885; J2405

== ENCOUNTER → 2016-05-28 | Outpatient (REF) | payer OTHER | LOC: M SFHCLERA 12:27 | PROVIDERS: ATTEND Physician Assistant | DX: J02.9 Acute pharyngitis, unspecified (principal) ==

== ENCOUNTER → 2016-06-03 | Outpatient (CLI) | payer OTHER ==
--- NOTE | 2016-06-03 19:46 | REP ---
Clinical: Trauma. Technique: AP, lateral, bilateral oblique views right foot . Findings: The osseous structures and joint spaces are intact and normal. There is no evidence for acute fracture or dislocation. Surrounding soft tissues are unremarkable. No subcutaneous emphysema or radiodense foreign body. Impression: No acute fracture or dislocation. Signed by Kenn Doty MD 06/03/2016 07:38 P
== END ==
LOC: M LRY 17:35
PROVIDERS: ATTEND Nurse Practitioner Family
DX: S99.921A Unspecified injury of right foot, initial encounter (principal); X58.XXXA Exposure to other specified factors, initial encounter; Y92.89 Other specified places as the place of occurrence of the external cause

== ENCOUNTER 2016-10-15 08:42 | Emergency (ER) | payer OTHER ==
[~2016-10-15] VITALS: Ht 170.2 cm; Wt 93.6 kg
[2016-10-15] MEDS ORDERED: ADDE20CA3 PO (08:48)
[2016-10-15] MEDS ORDERED: AMOX500C PO (08:50)
[2016-10-15] MEDS ORDERED: cefTRIAXone SOD 2 GM in D5W MINI-BAG PLUS 50 ML IV ONE (09:15)
[2016-10-15] MEDS ORDERED: KETOROLAC 30 MG/ML VIAL (J1885) IV ONE (09:15)
[2016-10-15 09:52] LABS: ANION GAP 7 MEQ/L (8-16); BLOOD UREA NITROGEN 15 MG/DL (7-18); CALCIUM LEVEL 8.8 MG/DL (8.5-10.1); CARBON DIOXIDE LEVEL 27 MEQ/L (21-32); CHLORIDE LEVEL 105 MEQ/L (98-107); CREATININE FOR GFR 0.81 MG/DL (0.55-1.02); GLOMERULAR FILTRATION RATE > 60.0 (>60); GLUCOSE, FASTING 132 MG/DL (70-105); POTASSIUM SERUM 3.8 MEQ/L (3.5-5.1); SODIUM LEVEL 139 MEQ/L (136-145)
[2016-10-15 09:56] LABS: BASO % 0.5 % (0.0-1.0); EOS # 0.2 K/mm3 (0.0-0.50); EOS % 3.6 % (0.0-3.0); LARGE UNSTAINED CELL # 0.1 K/mm3 (0.0-0.4); LARGE UNSTAINED CELL % 1.9 % (0.0-4.0); LYMPH # 1.6 K/mm3 (1.5-4.5); LYMPH % 27.6 % (24.0-44.0); MEAN CORPUSCULAR HEMOGLOBIN 31.8 pg (27.0-33.0); MEAN CORPUSCULAR HGB CONC 34.3 g/dl (32.0-36.5); MEAN CORPUSCULAR VOLUME 92.8 fl (80.0-96.0); MONO # 0.3 K/mm3 (0.0-0.8); MONO % 4.9 % (0.0-5.0); NEUTROPHILS # 3.4 K/mm3 (1.8-7.7); NEUTROPHILS % 61.5 % (36.0-66.0); PLATELET COUNT, AUTOMATED 215 k/mm3 (150-450); RED CELL DISTRIBUTION WIDTH 12.6 % (11.5-14.5); WHITE BLOOD COUNT 5.5 K/mm3 (4.0-10.0)
[2016-10-15] MEDS ORDERED: NS 1,000 ML IV ONE (10:15)
[2016-10-15] MEDS ORDERED: ONDANSETRON 4MG/2ML VIAL (J2405) IV ONE (10:15)
[2016-10-15] MEDS ORDERED: KETO10TAB PO (11:43)
[2016-10-15] MEDS ORDERED: NORCOTAB PO (11:43)
[2016-10-15 11:52] VITALS: BP 120/77
--- NOTE | 2016-10-17 16:08 | REP ---
CT ABDOMEN AND PELVIS WITHOUT CONTRAST: 10/15/2016. Comparison: 04/10/2016. Clinical history: Left CVA tenderness. Prior history of renal stone disease. CT abdomen: Standard noncontrast technique with coronal and sagittal reconstructions provided. The lung bases are clear. The heart is not enlarged. There is no pericardial thickening or effusion. A small hiatal hernia is seen. Some retained food seen in the stomach. There is no hepatosplenomegaly, focal hepatic or splenic lesion, intrahepatic biliary dilatation nor perihepatic ascites. Gallbladder shows no calcified stone or mass. Pancreas without mass, ductal dilatation or adjacent inflammatory change. Adrenal glands are normal. Small bowel loops are fluid filled, but not abnormally dilated. There is stool and gas in the colon. No sign of colitis or diverticulitis. The aorta is without aneurysm and no periaortic or other retroperitoneal lymphadenopathy. Right kidney shows no stone, hydronephrosis, cyst or mass. No perinephric edema. Ureters shows a normal course to the bladder without dilatation or stone. The left kidney shows a 3.7 mm stone in the lower pole mihaela without hydronephrosis. I see no hydroureter or ureteral stone. There is no solid or cystic mass in that kidney. There is no edema of the left kidney or infiltration of the perinephric fat. Lung window review of all CT slices abdomen and pelvis shows no perforation or free air. Bone windows show no acute finding. CT pelvis: Bones intact. Uterus anteverted and not enlarged. There is no adnexal mass. No pelvic lymphadenopathy or free fluid. I see no colitis or diverticulitis in the distal left colon to sigmoid and rectum. Appendix absent. No ventral or inguinal hernia nor pathologic inguinal adenopathy. Bladder only partially filled but without stone, mass or wall thickening. Impression: 1. There is a 3.7 mm stone lower pole left kidney without hydronephrosis, hydroureter or left ureteral stone. Right kidney, collecting system and ureter were unremarkable as was the bladder. 2. No colitis, diverticulitis, abscess, ascites, adenopathy or other acute finding. Negative examination for any other finding. Signed by Quinton Jacob MD 10/17/2016 05:12 P
== END 2016-10-15 11:54 | disposition home or self-care (01) ==
LOC: M ED 08:42
DX: N20.0 Calculus of kidney (principal)
CPT/HCPCS: 36415; 74176; 80048; 81001; 81025; 83605; 85025; 87040; 87086; 96365; 96375; 99284; J0696; J1885; J2405

== ENCOUNTER → 2017-02-04 | Outpatient (CLI) | payer OTHER ==
[~2017-02-04] MED LIST: ADDE20CA3 PO; AMOX500C PO; KETO10TAB PO; NORCOTAB PO
--- NOTE | 2017-02-04 11:01 | REP ---
Clinical: Trauma. Technique: AP, lateral, bilateral oblique views of the left third digit. Findings: A very subtle nondisplaced fracture/injury at the base of the distal phalanx along the volar aspect cannot be excluded. Correlation with mechanism of injury and point of tenderness recommended. The remainder examination appears normal and no further acute fracture or dislocation is identified or suggested. No subcutaneous emphysema. No foreign body. Impression: Cannot exclude very subtle injury along the volar base of the distal phalanx. Signed by Kenn Doty MD 02/04/2017 10:53 A
== END ==
LOC: M LRY 10:34
PROVIDERS: ATTEND Nurse Practitioner Family
DX: S69.92XA Unspecified injury of left wrist, hand and finger(s), initial encounter (principal); X58.XXXA Exposure to other specified factors, initial encounter; Y92.89 Other specified places as the place of occurrence of the external cause; Y93.89 Activity, other specified; Y99.8 Other external cause status
CPT/HCPCS: 73140; G0463

== ENCOUNTER 2017-03-15 17:03 | Emergency (ER) | payer OTHER ==
[2017-03-15] MEDS: FLUORESCEIN OPHTH 1 MG STRIP OD (21:30)
[2017-03-15] MEDS: TETRACAINE 0.5% OPHTH SOLN 4ML OD (21:30)
[2017-03-15 21:50] LABS: BASO % 0.3 % (0.0-1.0); EOS # 0.2 10^3/uL (0.0-0.50); EOS % 1.3 % (0.0-3.0); HEMATOCRIT 36.2 % (36.0-47.0); HEMOGLOBIN 12.4 g/dl (12.0-16.0); IMMATURE GRANULOCYTE # 0.1 10^3/uL (0-0); IMMATURE GRANULOCYTE % 0.5 % (0-0); LYMPH # 2.2 10^3/uL (1.5-4.5); LYMPH % 16.9 % (24.0-44.0); MEAN CORPUSCULAR HEMOGLOBIN 31.3 pg (27.0-33.0); MEAN CORPUSCULAR HGB CONC 34.3 g/dl (32.0-36.5); MEAN CORPUSCULAR VOLUME 91.4 fl (80.0-96.0); MONO # 0.8 10^3/uL (0.0-0.8); MONO % 5.7 % (0.0-5.0); NEUTROPHILS % 75.3 % (36.0-66.0); PLATELET COUNT, AUTOMATED 295 10^3/uL (150-450); RED BLOOD COUNT 3.96 10^6/uL (4.00-5.40); RED CELL DISTRIBUTION WIDTH 12.8 % (11.5-14.5); WHITE BLOOD COUNT 13.3 10^3/uL (4.0-10.0)
[2017-03-15 21:52] LABS: KETONE, URINE AUTO RFX NEGATIVE (NEGATIVE); LEUKOCYTE ESTERASE UR AUTO RFX NEGATIVE (NEGATIVE); NITRITE, URINE AUTO RFX NEGATIVE (NEGATIVE); RBC, URINE AUTO RFX 1 /HPF (0-3); SQUAM EPITHELIAL CELL UR AURFX 1 /HPF (0-6); WBC, URINE AUTO RFX 1 /HPF (0-3)
[2017-03-15 22:29] LABS: ALBUMIN 3.7 GM/DL (3.2-5.2); ALBUMIN/GLOBULIN RATIO 1.03 (1.00-1.93); ALKALINE PHOSPHATASE 51 U/L (45-117); ALT/SGPT 35 U/L (12-78); ANION GAP 10 MEQ/L (8-16); AST/SGOT 19 U/L (7-37); BILIRUBIN,TOTAL 0.3 MG/DL (0.2-1.0); BLOOD UREA NITROGEN 12 MG/DL (7-18); CALCIUM LEVEL 8.5 MG/DL (8.5-10.1); CARBON DIOXIDE LEVEL 22 MEQ/L (21-32); CHLORIDE LEVEL 108 MEQ/L (98-107); CREATININE FOR GFR 0.59 MG/DL (0.55-1.02); GLOMERULAR FILTRATION RATE > 60.0 (>60); GLUCOSE, FASTING 84 MG/DL (70-105); HCG, SERUM QUANTITATIVE 3352 MIU/ML; LIPASE 159 U/L (73-393); POTASSIUM SERUM 3.9 MEQ/L (3.5-5.1); SODIUM LEVEL 140 MEQ/L (136-145); TOTAL PROTEIN 7.3 GM/DL (6.4-8.2)
[2017-03-15] MEDS: PERCOCET 5MG/325MG TAB PO (23:28)
== END 2017-03-15 23:34 | disposition home or self-care (01) ==
LOC: M ED 17:03
DX: O99.89 Other specified diseases and conditions complicating pregnancy, childbirth and the puerperium (principal); H20.9 Unspecified iridocyclitis; O99.341 Other mental disorders complicating pregnancy, first trimester; F90.9 Attention-deficit hyperactivity disorder, unspecified type; Z3A.01 Less than 8 weeks gestation of pregnancy; Z91.041 Radiographic dye allergy status
CPT/HCPCS: 76801

== ENCOUNTER → 2017-08-03 | Outpatient (CLI) | payer OTHER | LOC: M EKG 09:46 | DX: E11.9 Type 2 diabetes mellitus without complications (principal) ==

== ENCOUNTER → 2017-09-18 | Outpatient (CLI) | payer OTHER | LOC: M RAD 10:37 | DX: Z34.83 Encounter for supervision of other normal pregnancy, third trimester (principal) | CPT/HCPCS: 76819 ==

== ENCOUNTER 2017-09-19 07:59 | Outpatient (CLI) | payer OTHER | END 2017-09-19 11:10 | disposition home or self-care (01) | LOC: M LDO 07:59 | DX: O40.3XX0 Polyhydramnios, third trimester, not applicable or unspecified (principal); Z3A.32 32 weeks gestation of pregnancy; O99.343 Other mental disorders complicating pregnancy, third trimester; F32.9 Major depressive disorder, single episode, unspecified | CPT/HCPCS: 76815 ==

== ENCOUNTER → 2017-10-02 | Outpatient (CLI) | payer OTHER | LOC: M RAD 09:41 | DX: O40.3XX1 Polyhydramnios, third trimester, fetus 1 (principal); O24.113 Pre-existing type 2 diabetes mellitus, in pregnancy, third trimester; Z3A.34 34 weeks gestation of pregnancy | CPT/HCPCS: 76815 ==

== ENCOUNTER → 2017-10-05 | Outpatient (CLI) | payer OTHER | LOC: M RAD 09:36 | DX: O24.113 Pre-existing type 2 diabetes mellitus, in pregnancy, third trimester (principal); E11.9 Type 2 diabetes mellitus without complications; O40.3XX0 Polyhydramnios, third trimester, not applicable or unspecified; Z3A.37 37 weeks gestation of pregnancy | CPT/HCPCS: 76815 ==

== ENCOUNTER 2017-10-13 20:33 | Outpatient (CLI) | payer OTHER ==
[2017-10-13] MEDS: LR 1,000 ML IV ×2 (21:32→22:39)
[2017-10-13 21:43] LABS: BEDSIDE GLUCOSE 87 MG/DL (70-105)
[2017-10-13 21:54] LABS: HEMATOCRIT 32.6 % (36.0-47.0); HEMOGLOBIN 10.9 g/dl (12.0-15.5); MEAN CORPUSCULAR HEMOGLOBIN 28.1 pg (27.0-33.0); MEAN CORPUSCULAR HGB CONC 33.4 g/dl (32.0-36.5); PLATELET COUNT, AUTOMATED 245 10^3/uL (150-450); RED BLOOD COUNT 3.88 10^6/uL (4.00-5.40); RED CELL DISTRIBUTION WIDTH 13.4 % (11.5-14.5); WHITE BLOOD COUNT 10.5 10^3/uL (4.0-10.0)
[2017-10-14] MEDS ORDERED: LR 1,000 ML IV (23:20)
== END 2017-10-14 04:10 | disposition home or self-care (01) ==
LOC: M LDO 20:33
DX: O26.893 Other specified pregnancy related conditions, third trimester (principal); Z3A.35 35 weeks gestation of pregnancy; O99.213 Obesity complicating pregnancy, third trimester; O99.343 Other mental disorders complicating pregnancy, third trimester; F32.9 Major depressive disorder, single episode, unspecified; F41.9 Anxiety disorder, unspecified; O40.3XX0 Polyhydramnios, third trimester, not applicable or unspecified; O24.113 Pre-existing type 2 diabetes mellitus, in pregnancy, third trimester; E11.9 Type 2 diabetes mellitus without complications; Z87.51 Personal history of pre-term labor
CPT/HCPCS: 76815

== ENCOUNTER 2017-10-23 12:28 | Inpatient (IN) | payer OTHER ==
[2017-10-23] MEDS: PENICILLIN G POTASSIUM IV 5 MU in D5W MINI-BAG PLUS 100 ML IV (14:35)
[2017-10-23] MEDS: LR 1,000 ML IV ×4 (14:35→23:00)
[2017-10-23 14:53] LABS: HEMATOCRIT 32.8 % (36.0-47.0); HEMOGLOBIN 10.9 g/dl (12.0-15.5); MEAN CORPUSCULAR HEMOGLOBIN 28.3 pg (27.0-33.0); MEAN CORPUSCULAR HGB CONC 33.2 g/dl (32.0-36.5); MEAN CORPUSCULAR VOLUME 85.2 fl (80.0-96.0); PLATELET COUNT, AUTOMATED 227 10^3/uL (150-450); RED BLOOD COUNT 3.85 10^6/uL (4.00-5.40); RED CELL DISTRIBUTION WIDTH 13.8 % (11.5-14.5); WHITE BLOOD COUNT 10.2 10^3/uL (4.0-10.0)
[2017-10-23 17:43] LABS: BEDSIDE GLUCOSE 101 MG/DL (70-105)
[2017-10-23] MEDS: PENICILLIN G POTASSIUM IV 2.5 MU in APPROPRIATE DILUENT 1 EA IV ×2 (18:47→23:04)
[2017-10-23] MEDS: OXYTOCIN DRIP 30 UNITS in APPROPRIATE DILUENT 1 EA IV (19:41)
[2017-10-23 20:12] LABS: BEDSIDE GLUCOSE 94 MG/DL (70-105)
[2017-10-23] MEDS: FAMOTIDINE 20 MG TAB PO (20:59)
[2017-10-23] MEDS ORDERED: FENTANYL 2MCG/ML ROPIVACAINE 0.2% IN 0.9% NACL 200ML IVBAG As Ordered (22:03)
[2017-10-23 22:14] LABS: BEDSIDE GLUCOSE 83 MG/DL (70-105)
[2017-10-23] MEDS ORDERED: NALOXONE INJ 0.4 MG/1 ML VIAL (J2310) IV (23:30)
[2017-10-23] MEDS ORDERED: FENTANYL/ROPIVACAINE/NACL BAG 200 ML EPIDURAL (23:30)
[2017-10-23] MEDS ORDERED: ePHEDrine SULFATE 25 MG/5 ML(5MG/ML) SYRINGE IV (23:30)
[2017-10-23] MEDS ORDERED: diphenhydrAMINE INJ 50MG/ML VIAL (J1200) IV (23:30)
[2017-10-23] MEDS ORDERED: LACTATED RINGER'S 1000 ML IV (23:30)
[2017-10-23] MEDS ORDERED: EPIDURAL/PCA KEYS XX (23:30)
[2017-10-23] MEDS ORDERED: REFRIGERATOR IV KEYS XX (23:30)
[2017-10-23] MEDS ORDERED: EPIDURAL COMMENT XX (23:30)
[2017-10-24 00:14] LABS: BEDSIDE GLUCOSE 76 MG/DL (70-105)
[2017-10-24] MEDS: ONDANSETRON 4MG/2ML VIAL (J2405) IV ×3 (00:16→11:08)
[2017-10-24 02:11] LABS: BEDSIDE GLUCOSE 75 MG/DL (70-105)
[2017-10-24] MEDS: PENICILLIN G POTASSIUM IV 2.5 MU in APPROPRIATE DILUENT 1 EA IV ×2 (02:54→06:55)
[2017-10-24 03:45] LABS: BEDSIDE GLUCOSE 88 MG/DL (70-105)
[2017-10-24] MEDS: LR 1,000 ML IV ×2 (03:45→06:59)
[2017-10-24 05:10] LABS: BEDSIDE GLUCOSE 88 MG/DL (70-105)
[2017-10-24 06:16] LABS: BEDSIDE GLUCOSE 79 MG/DL (70-105)
[2017-10-24 07:20] LABS: BEDSIDE GLUCOSE 106 MG/DL (70-105)
[2017-10-24] MEDS: OXYTOCIN DRIP 30 UNITS in APPROPRIATE DILUENT 1 EA IV ×3 (08:02→11:30)
[2017-10-24] MEDS ORDERED: ACETAMINOPHEN 500 MG TAB PO (08:15)
[2017-10-24] MEDS ORDERED: DIBUCAINE 1% OINTMENT 30GM TOP (08:15)
[2017-10-24] MEDS ORDERED: DOCUSATE SODIUM 100 MG CAP PO (08:15)
[2017-10-24] MEDS: miSOPROStol 200 MCG TAB (S0191) PR (08:15)
[2017-10-24] MEDS ORDERED: BUTORPHANOL 2 MG/ML INJ (J0595) As Ordered (10:28)
[2017-10-24] MEDS: BUTORPHANOL 2 MG/ML INJ (J0595) IV (10:48)
[2017-10-24] MEDS: METHYLERGONOVINE MALEATE 0.2 MG TAB PO ×3 (10:52→23:15)
[2017-10-24] MEDS ORDERED: ONDANSETRON 4MG/2ML VIAL (J2405) As Ordered (11:05)
[2017-10-24 11:10] LABS: HEMATOCRIT 28.9 % (36.0-47.0); HEMOGLOBIN 9.4 g/dl (12.0-15.5); MEAN CORPUSCULAR HEMOGLOBIN 27.6 pg (27.0-33.0); MEAN CORPUSCULAR HGB CONC 32.5 g/dl (32.0-36.5); MEAN CORPUSCULAR VOLUME 84.8 fl (80.0-96.0); PLATELET COUNT, AUTOMATED 201 10^3/uL (150-450); RED BLOOD COUNT 3.41 10^6/uL (4.00-5.40); RED CELL DISTRIBUTION WIDTH 13.6 % (11.5-14.5); WHITE BLOOD COUNT 13.4 10^3/uL (4.0-10.0)
[2017-10-24] MEDS: RHOGAM 300 MCG (1500 IU) INJ (J2790) IM (13:03)
[2017-10-24] MEDS: MEASLES,MUMPS,RUBELLA VACCINE INJ (MMR-II) (90707) SC (13:04)
[2017-10-24] MEDS: PERCOCET 5MG/325MG TAB PO ×2 (13:15→18:15)
[2017-10-24] MEDS: PRENATAL VITAMINS CHEWABLE TABLET PO (15:11)
[2017-10-24] MEDS: FAMOTIDINE 20 MG TAB PO ×2 (15:11→20:06)
[2017-10-24] MEDS: IBUPROFEN 800 MG TAB PO ×2 (15:12→23:15)
[2017-10-25] MEDS: PERCOCET 5MG/325MG TAB PO ×2 (02:28→08:07)
[2017-10-25] MEDS: METHYLERGONOVINE MALEATE 0.2 MG TAB PO (04:59)
[2017-10-25] MEDS: FAMOTIDINE 20 MG TAB PO (08:07)
[2017-10-25] MEDS: PRENATAL VITAMINS CHEWABLE TABLET PO (08:07)
[2017-10-25] MEDS: IBUPROFEN 800 MG TAB PO (08:07)
== END 2017-10-25 14:20 | disposition home or self-care (01) | DRG 775 ==
LOC: M LDI 12:28 → M OBS 10-24 15:02
PROVIDERS: Obstetrics & Gynecology
PROC: 3E033VJ Introduction of Other Hormone into Peripheral Vein, Percutaneous Approach (ICD-10-PCS; 2017-10-23)
PROC: 10E0XZZ Delivery of Products of Conception, External Approach (ICD-10-PCS; principal; 2017-10-24)
PROC: 10907ZC Drainage of Amniotic Fluid, Therapeutic from Products of Conception, Via Natural or Artificial Opening (ICD-10-PCS; 2017-10-24)
DX: O40.3XX0 Polyhydramnios, third trimester, not applicable or unspecified (principal); O24.425 Gestational diabetes mellitus in childbirth, controlled by oral hypoglycemic drugs; Z3A.37 37 weeks gestation of pregnancy; O99.214 Obesity complicating childbirth; E66.9 Obesity, unspecified; Z68.34 Body mass index [BMI] 34.0-34.9, adult; O99.824 Streptococcus B carrier state complicating childbirth; O76 Abnormality in fetal heart rate and rhythm complicating labor and delivery; Z37.0 Single live birth

== ENCOUNTER → 2018-04-07 | Outpatient (REF) | payer OTHER ==
[~2018-04-07] MED LIST changes: +BACIOIN5; +DEXTROAMP-AMPHET PO; +ERYT5OPO; +IBUP-1114 PO; +KETO5OPD; +MAPA500T2 PO; +METF-877 PO; +METF500T13 PO; +NUPE1OIN2 TOP; +OXYC1TAB23 PO; +PEPC1TAB2 PO; +PRENTAB55 PO; +TYLETAB14 PO; +ZANTTAB PO; +ZOLO25TA PO
== END ==
LOC: M SFHCLERA 14:13
PROVIDERS: ATTEND Nurse Practitioner Family
DX: R50.9 Fever, unspecified (principal)

== ENCOUNTER → 2018-10-20 | Outpatient (CLI) | payer OTHER ==
[~2018-10-20] MED LIST changes: +ALL10TAB29 PO; +CITA20TA6 PO; +ERYT1OIN26; -ERYT5OPO; +HYDR-3715 PO; +HYDR-643; +KETO0.5S2; -KETO5OPD; +NAPR-837 PO; +NAPR-885; -NORCOTAB PO; -PEPC1TAB2 PO; +PEPC40TA12 PO; +ZANT150T40 PO; -ZANTTAB PO
--- NOTE | 2018-10-20 19:00 | REP ---
Cough. FINDINGS: The superior mediastinal structures are midline. The cardiac silhouette is unremarkable in size, shape, and position. The diaphragmatic surfaces of the lungs are regular, and the costophrenic angles are clear. The pulmonary andrade are clear. The imaged osseous structures are intact. IMPRESSION: There is no acute cardiopulmonary disease. Electronically Signed by Oliver Jacobs DO 10/21/2018 10:01 A
== END ==
LOC: M LRY 15:08
PROVIDERS: ATTEND Nurse Practitioner Family
DX: R05 Cough (principal)

== ENCOUNTER → 2019-03-21 | Outpatient (REF) | payer OTHER | LOC: M SFHCLERA 16:28 | PROVIDERS: ATTEND Physician Assistant Medical | DX: J02.9 Acute pharyngitis, unspecified (principal) ==

== ENCOUNTER 2019-04-02 10:08 | Day surgery (SDC) | payer OTHER ==
[~2019-04-02] VITALS: Ht 170.2 cm; Wt 111.0 kg
[~2019-04-02 10:08] MED LIST changes: +LIDOCAINE 1% MDV 20ML VIAL SQ PRN; +LR 1,000 ML IV ONE; +MIDAZOLAM INJ 2 MG/2 ML VIAL (J2250) IV SCH; +ceFAZolin SOD 2 GM in IV 1 EA IV ONE; +fentaNYL 100 MCG/2 ML INJECTION (J3010) IV SCH
[2019-04-02] MEDS ORDERED: dexameTHASONE 10 MG/1 ML VIAL PRES.FREE (J1100) ONE (10:09)
[2019-04-02] MEDS ORDERED: ROPIvacaine 0.5% 30 ML INJECTION (J2795 PER 1MG) ONE (10:09)
[2019-04-02] MEDS ORDERED: LIDOCAINE 2% INJ 100 MG/5 ML SDV (FOR ANES.) As Ordered ONE (11:00)
[2019-04-02] MEDS ORDERED: ROCURONIUM BROMIDE 50 MG/5 ML VIAL As Ordered ONE ×2 (11:00→14:46)
[2019-04-02] MEDS ORDERED: propofoL 200 MG/20 ML VIAL As Ordered ONE (11:00)
[2019-04-02] MEDS ORDERED: dexameTHASONE 4 MG/ML 1ML VIAL (J1100) As Ordered ONE (11:01)
[2019-04-02] MEDS ORDERED: fentaNYL 100 MCG/2 ML INJECTION (J3010) As Ordered ONE ×4 (11:01→15:31)
[2019-04-02] MEDS ORDERED: ONDANSETRON 4MG/2ML VIAL (J2405) As Ordered ONE (11:01)
[2019-04-02] MEDS ORDERED: MIDAZOLAM INJ 2 MG/2 ML VIAL (J2250) As Ordered ONE ×2 (11:01→12:05)
[2019-04-02] MEDS ORDERED: SCOPOLAMINE 1MG TRANSDERMAL PATCH As Ordered ONE (12:15)
[2019-04-02] MEDS ORDERED: SCOPOLAMINE 1MG TRANSDERMAL PATCH TOP ONE (13:00)
[2019-04-02] MEDS ORDERED: ACETAMINOPHEN 1000MG 100ML IV BTL (OFIRMEV) (J0131 PER 10MG) As Ordered ONE (13:28)
[2019-04-02] MEDS ORDERED: KETAMINE HCL 200 MG/20 ML VIAL As Ordered ONE (13:28)
[2019-04-02] MEDS ORDERED: SUGAMMADEX SODIUM 500 MG/5 ML VIAL (BRIDION) As Ordered ONE (13:29)
[2019-04-02] MEDS ORDERED: LABETALOL HCL 100 MG/20 ML VIAL As Ordered ONE (14:48)
[2019-04-02] MEDS: fentaNYL 100 MCG/2 ML INJECTION (J3010) IV PRN ×3 (15:53→16:03)
[2019-04-02] MEDS ORDERED: LR 1,000 ML IV SCH ×2 (16:00→17:00)
[2019-04-02] MEDS ORDERED: ONDANSETRON 4MG/2ML VIAL (J2405) IV PRN (16:00)
[2019-04-02] MEDS ORDERED: MORPHINE 10 MG/ML 1ML VIAL (J2270) As Ordered ONE (16:04)
[2019-04-02] MEDS: MORPHINE 2 MG/ML 1ML VIAL (J2270) IV PRN ×3 (16:07→16:19)
[2019-04-02] MEDS ORDERED: METOCLOPRAMIDE INJ 10MG/2ML VIAL (J2765) As Ordered ONE (16:25)
[2019-04-02] MEDS ORDERED: METOCLOPRAMIDE INJ 10MG/2ML VIAL (J2765) IV ONE (16:45)
[2019-04-02 17:20] VITALS: BP 127/75
--- NOTE | 2019-04-03 08:31 | RO ---
DATE OF PROCEDURE: 04/02/2019 PREOPERATIVE DIAGNOSES: 1. Right lateral talar dome osteochondral lesion. 2. Right ankle instability. POSTOPERATIVE DIAGNOSES: 1. Right lateral talar dome osteochondral lesion. 2. Right ankle instability. PROCEDURES: 1. Right ankle arthroscopy with debridement of the tibiotalar joint. 2. Right lateral talar dome osteochondral lesion debridement and microfracture. 3. Right Brostr m Dodd procedure. SURGEON: Dr. Ani Cardona CREDIT ANALYSIS MANAGER: KRIS Ferreira ANESTHESIA: General endotracheal with popliteal nerve block. ESTIMATED BLOOD LOSS: 25 mL. COMPLICATIONS: None. IMPLANTS: Arthrex biocomposite suture anchors 3 mm suture tacks times two. INDICATIONS: Tala Solorio is a 34-year-old female who has had long standing pain and repeat ankle sprains. She has failed conservative measures. Risk and benefits of surgery were discussed with the patient and detail and include but are not limited to infection, damage to nerves and blood vessels, continued pain and stiffness, need for additional procedures. Informed consent was obtained in the office. PROCEDURE: Patient was met in the preoperative holding area where her right lower extremity was marked as the correct operative site. She then underwent a popliteal nerve block by the anesthesia team. She was taken to the operating room and underwent general anesthesia. She received antibiotics within 60 minutes prior to incision. A well padded tourniquet was placed in the right upper thigh. The thigh was placed in a leg claros with the hip at approximately 50 degrees of flexion. The leg was well padded. The right lower extremity ws then prepped and draped in the normal sterile fashion. An official time out was held to verify the correct patient, operative site and operative procedure. Following this the tourniquet was inflated to 275 mmHg. It was up for 140 minutes. The foot was placed into the Arthrex ankle distractor and appropriate distraction was placed on the ankle. The medial portal was established first by injecting 10 mL of saline into the joint using a #22 gauge needle of normal size (not a spinal needle). I then made a small incision with the #15 blade and then following this I spread with a snap until I gained access to the joint. The 3 mm camera was then placed into the portal and was able to establish medial portal to the ankle joint. Following this the lateral portal was established by using the same 22-gauge needle for placement and same technique with a 15 blade and a snap for spreading. Following this the shaver was introduced and the ankle joint was debrided. The medial articular cartilage and gutter were without lesions. There was an 8-10 mm lesion in the posterior lateral aspect of the talar dome that essentially had a large cartilaginous flap. This was full thickness. The flap was debrided to a stable cartilaginous rim. I then did an arthroscopic microfracture. Following this I did take a final look throughout the lateral gutter and central tibiotalar joint and medial gutter and there were no other lesion. There was a fair amount of synovitis and impingement lesion laterally which was all debrided as well. At this point the thigh claors was removed. A sterile bump was placed under the foot and I proceeded with a Colette stevens Dodd procedure. Given the location of my portal was actually somewhat lateral I did incorporate this into my incision which was essentially anterior over the anterior edge of the fibula. A cup of ATFL and CFL remnant and capsule was taken off the fibula sharply. Curette and Bovie was used to roughen up the fibula. Two Arthrex 3-0 suture anchors were placed in the regions in the foot prints of the ATFL and CFL. These were double loaded suture anchors. They were then passed through the cup of tissue and tied down with the foot in slight posterior translation and eversion. There was an adequate bumper of tissue however patient's tissue was overall fairly attenuated in this area. It was further reinforced with a #2 FiberWire and 0 Vicryl with the Dodd modification incorporated as well. At this point his ankle was stable to anterior drawer and talar tilt testing. Copious irrigation had been performed before the sutures were tied down in the tibiotalar joint itself along with the lateral wounds. The subcutaneous tissue was closed with 3-0 Vicryl and the skin was closed using 3-0 Nylon. The patient was placed into a well padded splint. She was extubated and transferred to the recovery room in stable condition. PLAN: The patient will be non-weightbearing for 6 weeks. She will have aspirin for DVT prophylaxis. Return in two weeks for suture removal and cast placement.
== END 2019-04-02 17:50 | disposition home or self-care (01) ==
LOC: M SDC 10:08
PROVIDERS: ATTEND Orthopaedic Surgery
DX: M25.371 Other instability, right ankle (principal); M95.8 Other specified acquired deformities of musculoskeletal system; K21.9 Gastro-esophageal reflux disease without esophagitis; Z87.891 Personal history of nicotine dependence; F32.9 Major depressive disorder, single episode, unspecified; E66.9 Obesity, unspecified; Z91.041 Radiographic dye allergy status
CPT/HCPCS: 27698; 29891; 64445; 81025; C1713; J0131; J0690; J1100; J2250; J2270; J2405; J2765; J2795; J3010